=== PATIENT | male | born 2000 | race Caucasian/White ===

== ENCOUNTER 2025-01-10 21:22 | Emergency (ER) | payer OTHER, SELFPAY ==
[2025-01-10 22:15] VITALS: BP 143/95; PULSE 52; TEMP 36.8; O2SAT 99; BMI 28.1
--- NOTE | 2025-01-10 22:23 | ED_ITS ---
HPI HPI - General Adult General Stated complaint: MOUTH PAIN Time Seen by Provider: 01/10/25 21:38 Source: patient Mode of arrival: walk-in Limitations: no limitations History of Present Illness HPI narrative: 24-year-old male presents for dental pain. He is complaining of intermittent pain to his left upper dentition. No injury or fever or difficulty breathing or swallowing. He has had it for a few days and does not have a dentist. Related Data Home Medications ?Medication ?Instructions ?Recorded ?Confirmed buprenorphine 8 mg-naloxone 2 mg film 01/10/25 sublingual film Previous Rx's ?Medication ?Instructions ?Recorded ibuprofen 800 mg tablet 800 mg PO Q8H PRN pain #20 t abs 01/10/25 penicillin V potassium 250 mg 250 mg PO QID 10 days #4 0 tabs 01/10/25 tablet Allergies Allergy/AdvReac Type Severity Reaction Status Date / Time No Known Drug Allergies Allergy Verified 01/10/25 22:10 Review of Systems ROS Narrative A ten point review of systems is negative except as noted above. Exam Narrative Exam Narrative: Nurses note and vital signs reviewed and patient is not hypoxic. General: The patient appears well and in no apparent distress. Patient is resting comfortably on cart. Skin: Warm, dry, no pallor noted. There is no rash noted. Head: Normocephalic, atraumatic Eye: Normal conjunctiva, no drainage Ears, Nose, Mouth, and Throat: oral mucosa is moist. Nares patent. No facial swelling or erythema. No gingival swelling or erythema. No bleeding or pus present. No swelling to the floor of his mouth. Cardiovascular: Regular Rate and Rhythm Respiratory: Patient is in no distress, no accessory muscle use Back: non-tender GI: Nontender Musculoskeletal: The patient has no evidence of calf tenderness, no pitting edema, symmetrical pulses noted bilaterally Neurological: A&O, normal speech Psychiatric: Cooperative Constitutional Vital Signs, click to edit/add: Last Vital Signs Temp 98.2 F 01/10/25 22:15 Pulse 52 L 01/10/25 22:15 Resp 20 01/10/25 22:15 BP 143/95 H 01/10/25 22:15 Pulse Ox 99 01/10/25 22:15 O2 Del Method Room Air 01/10/25 22:15 Course Vital Signs Vital signs: Vital Signs Temperature 98.2 F 01/10/25 22:15 Pulse Rate 52 L 01/10/25 22:15 Respiratory Rate 20 01/10/25 22:15 Blood Pressure 143/95 H 01/10/25 22:15 Pulse Oximetry 99 01/10/25 22:15 Oxygen Delivery Method Room Air 01/10/25 22:15 Temperature 98.2 F 01/10/25 22:15 Pulse Rate 52 L 01/10/25 22:15 Respiratory Rate 20 01/10/25 22:15 Blood Pressure 143/95 H 01/10/25 22:15 Pulse Oximetry 99 01/10/25 22:15 Oxygen Delivery Method Room Air 01/10/25 22:15 Medical Decision Making MDM Narrative Medical decision making narrative: He was prescribed penicillin and ibuprofen and was given first doses of those here. He is on buprenorphine so we will avoid narcotics. He was given dental referral list. Treatment diagnosis and follow-up were discussed with the patient. Differential Diagnosis Differential Diagnosis: Odontalgia, dental caries, dental abscess Discharge Plan Discharge Clinical Impression: Odontalgia Patient Disposition: Home, Self-Care Time of Disposition Decision: 22:22 Condition: Good Mode of Transportation: Private Vehicle Prescriptions / Home Meds: New penicillin V potassium 250 mg tablet 250 mg PO QID 10 Days Qty: 40 0RF ibuprofen 800 mg tablet 800 mg PO Q8H PRN (Reason: pain) Qty: 20 0RF No Action buprenorphine-naloxone 8-2 mg film Print Language: [place] Island[place] Instructions: Toothache (ED) Additional Instructions: See attached dental list
[2025-01-10] MEDS: PENICILLIN V POTASSIUM 250 MG TABLET 500 MG PO (22:37)
[2025-01-10] MEDS: IBUPROFEN 400 MG TABLET 800 MG PO (22:38)
--- NOTE | 2025-01-10 22:44 | PC.NURSE ---
i gave this patient verbal and written discharge along with 2 e-scripts and a dentist list, this patient voices yes to understanding these. at time of discharge this patient voices no concerns, and needs and shows no signs of distress
== END 2025-01-10 22:43 | disposition home or self-care (01) ==
LOC: ER 22:33
PROVIDERS: Emergency Provider Emergency Medicine
DX: K08.89 Other specified disorders of teeth and supporting structures (principal)
CPT/HCPCS: 99283

== ENCOUNTER 2025-02-02 20:32 | Emergency (ER) | payer OTHER, SELFPAY ==
[2025-02-02 20:44] VITALS: BP 161/89; PULSE 74; TEMP 36.9; O2SAT 99; BMI 27.3
--- OUTSIDE RECORDS SUMMARY | 2025-02-02 21:47 | XMS_ITS | Clinical Summary ---
Author Organization [facility] Address [address], [address] [place] [address] Care Team Providers Care Employee Operations Examiner Name Role Phone Unavailable Primary Care Provider Unavailabl e Allergies No known active allergies Medications No known medications Social History Tobacco Use Types Packs/Day Years Used Date Smoking Tobacco: Every Day Cigarettes Tobacco Cessation:Ready to Q uit: Not Asked; Counseling Given: Not Answered Alcohol Use Standard Drinks/Week Comments Not Currently 0 (1 standard drink = 0.6 oz pur e alcohol) AUDIT-C Answer Date Recorded Q1: How often do you have a drink containing alcohol? Never 09/10/2024 Q2: How many drinks containi ng alcohol do you have on a typical day when you are drinking? Patient does not drink Q3: How often do you have si x or more drinks on one occasion? Never 09/10/2024 Sex and Gender Information Value Date Recorded Sex Assigned at Not on file Legal Sex Male 1:12 PM EDT Gender Identity Not on file Sexual Orientation Not on file Last Filed Vital Signs Vital Sign Reading Time Taken Comments Blood Pressure 159/89 09/10/2024 7:46 PM EDT Pulse 83 09/10/2024 7:46 PM EDT Temperature 36.7 C (98.1 F) 09/10/2024 7:46 PM EDT Respiratory Rate 18 09/10/2024 7:46 PM EDT Oxygen Saturation 98% 09/10/2024 7:46 PM EDT Inhaled Oxygen Concentration - - Weight 90.7 kg (200 lb) 09/10/2024 7:46 PM EDT Height 177.8 cm (5' 10 ) 09/10/2024 7:46 PM EDT Body Mass Index 28.7 09/10/2024 7:46 PM EDT Plan of Treatment Health Maintenance Due Date Last Done Comments Depression Screen 2011 Varicella vaccine (1 of 2 - 13+ 2-dose series) 02/25/2012 HIV screen 2014 HPV vaccine (1 - Male 3-dose series) 2014 Hepatitis C screen 2017 DTaP/Tdap/Td vaccine (1 - Tdap) 2018 Hepatitis B vaccine (1 of 3 - 19+ 3-dose series) 2018 Pneumococcal 0-49 years Vacc ine (1 of 2 - PCV) 2018 Annual Wellness Visit ([employer]ic [employer]) 05/24/2024 Flu vaccine (#1) 12/22/2024 COVID-19 Vaccine (1 - 2023-2 5 season) 2025 Hepatitis A vaccine Aged Out No longe r eligible based on patient's age to complete this topic Hib vaccine Aged Out No longer eligi ble based on patient's age to complete this topic Meningococcal (ACWY) vaccine Aged Out No longer eligible based on patient's age to complete this topic Meningococcal B vaccine Aged Out No l onger eligible based on patient's age to complete this topic Polio vaccine Aged Out No longer elig ible based on patient's age to complete this topic Insurance [facility] [place] [address] [place] [facility] [employer]
--- OUTSIDE RECORDS SUMMARY | 2025-02-02 21:47 | XMS_ITS | Patient Health Record ---
Author Organization [facility] Address [address] [place], [place] [id number] Care Team Providers Care Assistant Scientist Name Role Phone romelElgin Maldonado Primary Care Provider [phone] Allergies No Known Allergies Reason For Referral No Information Medications Medication SIG (Take, Route, Fr equency, Duration) Notes Start Date End Date Status MiraLax 17 GM 1 packet mixed with 8 ounces of fluid Orally Once a day; Duration: 30 days 05/26/2022 Active Ondansetron 8 MG 1 tablet on the tong ue and allow to dissolve Orally Three times a day; Duration: 30 days 05/26/2022 A ctive Carafate 1 GM 1 tablet on an empty stomach Orally Twice a day; Duration: 30 days 05/26/2022 Active Omeprazole 40 MG 1 capsule 30 minutes before morning meal Orally Twice a day; Duration: 60 days 05/26/2022 Active Dicyclomine HCl 10 MG 1 tablet Orally Th ree times a day Active Social History Tobacco Use: Social History Observation Description Date Details (start date - stop date) Current Smoker NA - NA Sex Assigned At : Social History Observation Description Sex Assigned At Male Tobacco Use/Smoking Question Answer Notes Tobacco use: current every day smoker Additional Findings: Tobacco User Light cigarett e smoker ((1-9 cigs/day) Problems Problem Type SNOMED Code ICD Code Onset Dates Problem Status W/U Status Risk Notes Problem Constipation (62911119) Constipation, unspecified constipation type (K59.00) Active confirmed Problem Gastroesophageal reflux disease (048284657) Gastroesophageal reflux disease, unspecified whether esophagitis present (K21.9) Active confirmed Problem External hemorrhoids (97575039) External hemorrhoids (K64.4) Active confirmed Problem Major depression (895765858) Major depression (F32.9) 017 Active confirmed Plan Of Treatment No Information Insurance Providers Payer Name Payer Address Payer Phone Subscriber Number Group Number Insured Name Patient Relationship to Insured Coverage Start Date Coverage End Date [facility] [address] [place] [address] [id number] Murtaza Balderas Self - patient is the insured 0 Medicaid CFC after [facility] [address] [place] [address] [id number] Murtaza Balderas Self - patient is the insured 0 [place] [facility] [address] [place], [place] [id number] Selam Russ Natural Child - Insured does not have Financial Responsibility (includes legally adopted child) 6 9 [facility] [address] [place] [address] [phone] [id number] Murtaza Balderas Self - patient is the insured 0 [employer] [address] [place] [address] Selam Russ Other Medical (General) History Medical History History ICD Code Major depression [place] schlatter disease Surgical History Surgery Date(Month/Year)
[2025-02-02 23:27] VITALS: BP 153/81; PULSE 65; O2SAT 99
--- NOTE | 2025-02-02 23:51 | ED_ITS ---
HPI - Dental/Oral General Chief complaint: Dental/Oral Stated complaint: DENTAL PAIN Time Seen by Provider: 02/02/25 23:45 Source: patient Mode of arrival: walk-in History of Present Illness HPI Narrative: dental pain was seen before and prescribed PCN for dental pain and it helped. Has an appointment next week with the dentist . The pain has returned. He is here for another prescription of PCN. No other complaint Related Data Home Medications ?Medication ?Instructions ?Recorded ?Confirmed buprenorphine 8 mg-naloxone 2 mg film 01/10/25 sublingual film Previous Rx's ?Medication ?Instructions ?Recorded ibuprofen 800 mg tablet 800 mg PO Q8H PRN pain #20 t abs 01/10/25 penicillin V potassium 250 mg 250 mg PO QID 10 days #4 0 tabs 01/10/25 tablet Allergies Allergy/AdvReac Type Severity Reaction Status Date / Time No Known Drug Allergies Allergy Verified 02/02/25 20:43 Review of Systems 2 ROS0 Status of ROS 10 or more systems reviewed and unremark able except as noted in history and below PFSH PFSH Social History Little interest or pleasure in doing things: not at all Feeling down, depressed, or hopeless: not at all Exam Constitutional Vital Signs, click to edit/add: Last Vital Signs Temp 98.5 F 02/02/25 20:44 Pulse 65 02/02/25 23:27 Resp 20 02/02/25 23:27 BP 153/81 H 02/02/25 23:27 Pulse Ox 99 02/02/25 23:27 O2 Del Method Room Air 02/02/25 23:27 Common normals: no apparent distress, average body habitus, oriented x3, no limitations, healthy appearing, alert and well nourished [facility] Common normals: normocephalic and head/scalp atraumatic Teeth and gingiva image: 2 1. tender Eye Common normals: EOMs intact bilaterally and conjunctivae normal Respiratory Common normals: normal respiratory effort, no retractions, no use of accessory muscles and clear to auscultation bilaterally Cardio Common normals: regular rate, regular rhythm, S1 normal heart sound and S2 normal heart sound Extremity Common normals: normal to inspection and full ROM Neuro Common normals: oriented x3 Psych Appearance: grossly normal Course Vital Signs Vital signs: Vital Signs Temperature 98.5 F 02/02/25 20:44 Pulse Rate 74 02/02/25 20:44 Respiratory Rate 02/02/25 20:44 Blood Pressure 161/89 H 02/02/25 20:44 Pulse Oximetry 99 02/02/25 20:44 Oxygen Delivery Method Room Air 02/02/25 20:44 Temperature 98.5 F 02/02/25 20:44 Pulse Rate 65 02/02/25 23:27 Respiratory Rate 20 02/02/25 23:27 Blood Pressure 153/81 H 02/02/25 23:27 Pulse Oximetry 99 02/02/25 23:27 Oxygen Delivery Method Room Air 02/02/25 23:27 MDM - Dental/Oral MDM Narrative Medical decision making narrative: patient presents with dentalgia. No obvious dental caries. States last time PCN was helpful in resolving the pain and he is here for another prescription. has appointment next week with his dentist. Given prescription for PCNVK and discharged home Discharge Plan Discharge Chief Complaint: Dental/Oral Clinical Impression: Dentalgia Patient Disposition: Home, Self-Care Prescriptions / Home Meds: No Action buprenorphine-naloxone 8-2 mg film penicillin V potassium 250 mg tablet 250 mg PO QID 10 Days Qty: 40 0RF ibuprofen 800 mg tablet 800 mg PO Q8H PRN (Reason: pain) Qty: 20 0RF Print Language: Wolof Instructions: Toothache (ED) Additional Instructions: follow up with your dentist next week Referrals: Physician,Non-Staff, MD [Primary Care Provider] - 1 week
[2025-02-03] MEDS: PENICILLIN V POTASSIUM 250 MG TABLET 500 MG PO (00:08)
== END 2025-02-03 00:11 | disposition home or self-care (01) ==
PROVIDERS: Emergency Provider Internal Medicine
DX: K08.89 Other specified disorders of teeth and supporting structures (principal)
CPT/HCPCS: 99283